=== PATIENT | male | born 1950 | race Caucasian/White ===

== ENCOUNTER 2016-10-24 14:06 | Emergency (ER) | payer MEDICARE, BC ==
[~2016-10-24] VITALS: Ht 182.9 cm; Wt 97.4 kg
[2016-10-24 14:54] VITALS: BP 127/66; PULSE 84; RESP 16; TEMP 97.6; O2SAT 97
--- NOTE | 2016-10-24 15:32 | RADRPT ---
EXAM DATE/TIME: 10/24/2016 15:08 [place] COMPARISON: No previous studies available for comparison. INDICATIONS : Left side rib pain; fall today. MEDICAL HISTORY : Diabetes. SURGICAL HISTORY : None. ENCOUNTER: Initial ACUITY: 1 day PAIN SCORE: 10/10 LOCATION: Left chest FINDINGS: Multiple views of the left ribs were performed. On one image, there appears to be a ninth left rib f racture. No destructive lesions or areas of periosteal thickening are seen. Expiratory view of the c hest is negative for pneumothorax. The mediastinal structures are midline. There is a rounded area o f calcification in the left upper quadrant likely related to arterial calcification. CONCLUSION: Left ninth rib fracture. Kodak Scott MD on October 24, 2016 at 15:24 Board Certified Radiologist. This report was verified electronically.
--- NOTE | 2016-10-24 16:04 | PD ---
HPI Chief Complaint: Fall Time Seen by Provider: 15:59 Travel History International Travel<30 days: No Contact w/Intl Traveler<30days: No Traveled to known affect area: No History of Present Illness HPI Patient comes in complaining of left-sided rib pain that began shortly prior to arrival. Patient states he tripped and fell over some debris causing him to land on his left side. Patient denies hitting his head or loss of consciousness. Patient denies any chest pain, shortness of breath, neck pain, back pain, fevers, nausea, vomiting, abdominal pain, loss of bowel or bladder, or numbness or tingling anywhere. Patient states he took his Percocet prior to coming to the emergency department for symptomatic relief. Pain is worse with palpation and deep inspiration. Denies any radiation of the pain. PFSH Past Medical History Hx Anticoagulant Therapy: Yes Diabetes: Yes Social History Tobacco Use: No Substance Use: No Allergies-Medications (Allergen,Severity, Reaction): Coded Allergies: No Known Allergies (Unverified , 10/24/16) Review of Systems Except as stated in HPI: all other systems reviewed are Neg Physical Exam Narrative GENERAL: Well-developed, overly nourished, in no acute distress, and non-ill appearing. SKIN: Focused skin assessment warm and dry. HEAD: Atraumatic. Normocephalic. EYES: Pupils equal and round. EOMI. No scleral icterus. No injection or drainage. ENT: No nasal bleeding or discharge. Mucous membranes pink and moist. NECK: Trachea midline. Supple. No nuclear rigidity. CARDIOVASCULAR: Regular rate and rhythm. No murmur appreciated. Radial pulses 2+, intact, and equal bilaterally. RESPIRATORY: No accessory muscle use. No respiratory distress. Clear to auscultation. Breath sounds equal bilaterally. Patient reports tenderness to palpation left lateral lower rib cage. There is no crepitus or step-off. GASTROINTESTINAL: Abdomen soft, non-tender, nondistended, and no guarding. Hepatic and splenic margins not palpable. No pulsatile mass. MUSCULOSKELETAL: No obvious deformities. No clubbing. No cyanosis. No edema. Full range of motion. NEUROLOGICAL: Awake and alert. No obvious cranial nerve deficits. Motor grossly within normal limits. Normal speech. PSYCHIATRIC: Appropriate mood and affect; insight and judgment normal. Data Data Last Documented VS Vital Signs Date Time Temp Pulse Resp B/P (MAP) Pulse Ox O2 Delivery O2 Flow Rate FiO2 10/24/16 14:54 97.6 84 16 127/66 (86) 97 Orders Orders Ribs, Uni (W/Exp Cxr-Min 3vw) (10/24/16 ) Resp Incentive Spirometry (10/24/16 ) MDM Medical Decision Making Medical Screen Exam Complete: Yes Emergency Medical Condition: Yes Interpretation(s) Chest x-ray read by the radiologist shows: Left ninth rib fracture. Differential Diagnosis Fracture, contusion, strain, pneumothorax, pneumonia, other Narrative Course The patient suffered rib fracture. There is no clinical evidence to suggest intrathoracic injury nor cardiac injury at this time. There was no clinical evidence to suggest flail chest. The patient moves air well without difficulty and is clear to auscultation. Heart sounds are audible without rubs, murmurs or gallops. There is no palpable crepitus. Pulses are symmetrical and strong. There is no significant tenderness over the lower chest to suggest injury to the liver nor spleen. Chest X-ray was normal without evidence of pneumothorax or hemothorax. The mediastinum appeared within normal limits. Diagnosis was discussed with the patient. The patient was discharged on pain medication and with a Inspiratory Spirometer after training. The patient is to return if develops any worsening pain, difficulty breathing, or if coughs up blood or develops fever. Patient agrees with plan and was recommended to follow up with their regular physician. Patient in no obvious distress upon re-evaluation. All pertinent Radiology result(s) discussed with patient. Patient was asked if they wanted to speak to my attending, which the patient did not wish to do at this time. Any questions/ concerns in reference to patient diagnosis/condition discussed and clarified prior to patient's discharge. Reinforced sheer importance of close follow up with patient's primary physician or primary care clinic. Instructed patient to return to ED immediately, if symptoms return/worsen. Pt showed understanding of above instructions. Further instructions and recommendations were detailed in discharge paperwork. Pt ambulated without difficulty out of ED at discharge. Diagnosis Primary Impression: Left rib fracture Qualified Codes: S22.32XA - Fracture of one rib, left side, initial encounter for closed fracture Patient Instructions: General Instructions, Rib Fracture (ED) Additional Instructions: Follow-up with your primary care physician in 5-7 days for reevaluation. Use incentive spirometer as instructed 10 times per hour to decrease chances of pneumonia.. Return to the emergency department if symptoms get worse. Disposition: 01 DISCHARGE HOME Condition: Stable Ciro Paul Oct 24, 2016 16:04
== END 2016-10-24 16:27 | disposition home or self-care (01) ==
LOC: PHED 14:06
DX: S22.32XA Fracture of one rib, left side, initial encounter for closed fracture (principal); W01.0XXA Fall on same level from slipping, tripping and stumbling without subsequent striking against object, initial encounter
CPT/HCPCS: 71101; 94150; 99283

== ENCOUNTER → 2017-06-07 | Outpatient (CLI) | payer MEDICARE, BC | LOC: PHRSP 07:11 | DX: J44.9 Chronic obstructive pulmonary disease, unspecified (principal) | CPT/HCPCS: 94010; 94726; 94729 ==